=== PATIENT | female | born 1955 | race Caucasian/White ===

== ENCOUNTER 2016-06-19 06:36 | Outpatient (CLI) | payer BC ==
[~2016-06-19] VITALS: Ht 167.6 cm; Wt 86.4 kg
--- NOTE | ~2016-06-19 | HEMODYNAMI ---
PATIENT:BAO COBB MEDICAL RECORD: [id number] : 55 LOCATION:[facility] ADMISSION DATE: 06/19/16 Generatedon:06/19/20169:06 Patient name: BAO COBB Patient #: [id number] SSN: : 1955 Date of study: 06/19/2016 Page: Of Hemodynamic Procedure Report Patient Data Patient Demographics Procedure consent was obtained First Name: BAO Gender: Female Last Name: REZA : 1955 Patient #: [id number] Age: 61 year(s) Race: Unknown Additional ID: [id number] Contact details Address: [address] [place] [address] State: [place] City: [place] Zip code: [address] Past Medical History Performed procedures and imaging results Date Procedure Procedure Results Comments 06/05/2016 Stress testing Positive->Intermediate anterior with SPECT MPI risk Allergies: No known allergies Admission Admission Data Admission Date: 06/19/2016 Admission Time: 6:36 Admit Source: Other Insurance Payor: Private health insurance Height (in.): 66 BSA: 1.96 (m2) Height (cm.): 167.64 BMI: 30.73 (kg/m2) Weight (lbs.): 190.39 Weight (kg.): 86.36 Lab Results Lab Result Date: 06/19/2016 Lab Result Time: 7:15 Biochemistry Name Units Result Min Max Creatinine mg/dl 0.8 --(-*--)-- 0.6 1.3 CBC Name Units Result Min Max Hematocrit % 38.9 *-(----)-- 42 54 Hemoglobin g/dl 12.7 -*(----)-- 13.5 17.5 Procedure Procedure Types Cath Procedure Diagnostic Procedure LHC LHC w/Coronaries Miscellaneous Procedures Moderate Sedation up to 30 minutes Procedure Description Procedure Date Procedure Date: 06/19/2016 Procedure Start Time: 8:40 Procedure End Time: 9:02 Procedure Staff Name Function Roel Cordon MD Performing Physician Asim Stapleton RT Scrub Kaur Caban RN Nurse Jv Kwok RT Monitor Procedure Data Cath Procedure Fluoroscopy Diagnostic fluoroscopy Total fluoroscopy Time: 2 time: 2 min min Diagnostic fluoroscopy Total fluoroscopy dose: 463 dose: 463 mGy mGy Contrast Material Contrast Material Type Amount (ml) Isovue 300 82 Entry Location Entry Primary Successful Side Size Upsize Upsize Entry Closure Succes sful Closure Location (Fr) 1 (Fr) 2 (Fr) Remarks Device Remarks Femoral Right 5 Fr Exoseal artery Estimated blood loss: 5 ml Diagnostic catheters Device Type Used For End Catheter Placement Cordis 5Fr JL 4.0 Procedure Catheter (MP) Cordis 5Fr 3DRC Catheter Procedure (MP) Cordis 5Fr Pigtail Procedure Catheter (MP) Procedure Complications No complications Procedure Medications Medication Administration Route Dosage Oxygen NC 2 l/min Lidocaine 2% added to field 20 0.9% NaCl I.V. 100 ml/hr Benadryl I.V. 50 mg Versed I.V. 1 mg Fentanyl I.V. 50 mcg Versed I.V. 1 mg Fentanyl I.V. 50 mcg Versed I.V. 1 mg Fentanyl I.V. 50 mcg Radial Cocktail I.A. 1 syringe (Verapomil 2mg/Nitro 400mcg/Heparin 1500units) Hemodynamics Rest BSA: 1.96 (m2) HGB: 12.7 (g/dl) O2 Consumption: Estimated: 188.71 (ml/min) O2 Co nsumption indexed: Estimated:96.28 (ml/min/m) Heart Rate: 75 (bpm) Pressure Samples Time Site Value (mmHg) Purpose Heart Use Rate(bpm) 8:58 LV 101/-5,13 Snapshot 78 8:58 LV 94/3,9 Snapshot 104 8:58 AO 98/52(73) Pullback 90 8:58 LV 93/2,13 Pullback 90 Gradients Valve Time Site 1 Site 2 Mean SEP/DFP Peak To Heart Use (mmHg) (sec/min) Peak Rate (mmHg) (bpm) Aortic 8:58 LV AO 0 7 0 90 93/2,13 98/52(73) Calculations Valve P-P Mean Valve Index Valve Source Name Gradient Area Flow (cm2) Aortic 0 0 0 0 Snapshots Pre Cath Intra NCS Post Cath Vital Signs Time Heart Resp SPO2 etCO2 [id number] NIBP (mmHg) Rhythm Pain Sedation Rate (ipm) (%) (mmHg) (mmHg) Status Level (bpm) 8:35:35 75 18 100 0 0 138/82(111) NSR 0 (11) 10(A) , No pain 8:39:53 74 20 96 0 0 125/65(88) NSR 0 (11) 10(A) , No pain 8:44:07 75 19 98 0 0 118/73(95) NSR 0 (11) 9(A) , No pain 8:48:23 76 26 98 0 0 121/68(89) NSR 0 (11) 9(A) , No pain 8:52:35 81 16 94 0 0 111/70(98) NSR 0 (11) 9(A) , No pain 8:56:47 82 17 99 0 0 109/63(83) NSR 0 (11) 9(A) , No pain 9:00:59 87 18 100 0 0 112/66(84) NSR 0 (11) 10(A) , No pain Medications Time Medication Route Dose Verified Delivered Reason Notes E ffectiveness by by 8:18:46 Oxygen NC 2 l/min Roel Buffie used for Bravo Caban RN procedure 8:19:47 Lidocaine 2% added 20ml Roel Roel for local to vial Bravo Cordon MD anesthetic field 8:20:16 Radial I.A. 1 Roel Roel for not Cocktail syringe Bravo Cordon MD vasodilation used, (Verapomil femoral 2mg/Nitro access 400mcg/Heparin obtained 1500units) 8:20:33 0.9% NaCl I.V. 100 Roel Buffie Per ml/hr Bravo Caban RN physician 8:33:38 Benadryl I.V. 50 mg Roel Buffie used for Bravo Caban RN procedure 8:38:15 Versed I.V. 1 mg Roel Buffie for sedation Bravo Caban RN 8:38:23 Fentanyl I.V. 50 mcg Roel Buffie for sedation Bravo Caban RN 8:42:21 Versed I.V. 1 mg Roel Buffie for sedation Bravo Caban RN 8:42:24 Fentanyl I.V. 50 mcg Roel Buffie for sedation Bravo Caban RN 8:46:51 Versed I.V. 1 mg Roel Dietrich for sedation Bravo Caban RN 8:46:54 Fentanyl I.V. 50 mcg Roel Dietrich for sedation Bravo Caban RN Procedure Log Time Note 8:00:52 Asim Stapleton RT(R) sent for patient. Start room use. 8:09:23 Informed consent obtained and on chart 8:09:26 Admit Source: Other 8:09:47 Diagnostic Cath status Elective 8:10:21 Time tracking: Regular hours 8:10:25 Plan of Care:Hemodynamics will remain stable., Cardiac rhythm will remain stable., Comfort level will be maintained., Respiratory function will remain adequate., Patient/ family verbilizes understanding of procedure., Procedure tolerated without complication., Recovers from procedure without complications.. 8:14:45 Patient Weight : 190.39 lbs 8:14:50 Patient Height : 66 inches 8:15:00 Insurance Payor : Private health insurance 8:18:35 Patient allergic to No known allergies 8:18:46 Oxygen 2 l/min NC was given by Kaur Caban RN; used for procedure; 8:19:25 Lab Result : Creatinine 0.8 mg/dl 8:19:25 Lab Result : Hematocrit 38.9 % 8:19:25 Lab Result : Hemoglobin 12.7 g/dl 8:19:47 Lidocaine 2% 20ml vial added to field was given by Roel Cordon MD; for local anesthetic; 8:19:49 H&P Date Dictated: 05/26/2016 Within 30 days and on chart., H&P Addendum completed by physician on day of procedure. (MUST COMPLETE FOR ALL OUTPATIENTS). 8:19:50 Pre-procedure instructions explained to patient. 8:20:16 Radial Cocktail (Verapomil 2mg/Nitro 400mcg/Heparin 1500units) 1 syringe I.A. was given by Roel Cordon MD; for vasodilation; not used, femoral access obtained 8:20:33 0.9% NaCl 100 ml/hr I.V. was given by Kaur Caban RN; Per physician; 8:21:03 Patient received from Outpatients to [facility] 2 Alert and oriented. Tansferred to table in Supine position. 8:21:05 Warm blankets applied, and sara hugger turned on for patient comfort. 8:21:05 Correct patient and procedure confirmed by team. 8:21:06 ECG and BP/O2 sat monitors applied to patient. 8:33:38 Benadryl 50 mg I.V. was given by Kaur Caban RN; used for procedure; 8:34:28 Vital chart was started 8:34:30 Baseline sample Acquired. 8:34:33 Rhythm: sinus rhythm 8:34:36 Pre-op teaching completed and patient verbalized understanding. 8:34:37 Family in waiting room. 8:34:38 Patient NPO since Midnight. 8:34:40 Is the patient allergic to Iodine/contrast media? No. 8:34:41 Is patient on blood thinner?No 8:34:43 Patient diabetic? No. 8:34:45 Previous problem with sedation/anesthesia? No ? 8:34:46 Snore? Yes 8:34:47 Sleep apnea? Yes 8:34:48 Deviated septum? No 8:34:49 Opens mouth fully? Yes 8:34:50 Sticks out tongue? No 8:34:53 Airway obstruction? No ? 8:34:55 Dentures? No ? 8:34:57 Modified Ted's test Ulnar < 7 seconds 8:34:59 Patient pain scale 0/10 ?. 8:35:03 IV patent on arrival in left forearm with 0.9% NaCl at [facility]. 8:35:08 Lab results completed and on chart. 8:35:10 Right Radial & Right Groin area was prepped with chlora-prep and draped in sterile fashion 8:35:11 Alarms reviewed by R. N. 8:35:12 Sharps counted by scrub and verified by R.N. 8:35:13 Physician arrived 8:35:13 --------ALL STOP TIME OUT------ 8:35:14 Final Timeout: patient, procedure, and site verified with staff and physician. All members of the team are in agreement. 8:35:15 Right Radial & Right Groin site verified by team. 8:35:18 Physical assessment completed. ASA score P 2 - A patient with mild systemic disease as per Roel Cordon MD. 8:35:23 Sedation plan: IV Moderate Sedation Versed, Fentanyl 8:35:28 Use device set Radial Dx 8:35:29 Tegaderm 4 x 4 opened to sterile field. 8:35:30 Acist Manifold opened to sterile field. 8:35:30 Acist Hand Control opened to sterile field. 8:35:31 Acist Syringe opened to sterile field. 8:35:32 Cardinal Cath Pack opened to sterile field. 8:35:32 Bag Decanter opened to sterile field. 8:35:32 Terumo 6Fr Slender Glidesheath opened to sterile field. 8:35:33 St Andrea 260cm J .035 wire opened to sterile field. 8:35:44 Cook 21G 4cm Radial Needle opened to sterile field. 8:38:15 Versed 1 mg I.V. was given by Kaur Caban RN; for sedation; 8:38:23 Fentanyl 50 mcg I.V. was given by Kaur Caban RN; for sedation; 8:38:57 Zero performed for pressure channel P1 8:40:26 Procedure started. 8:40:26 Full Disclosure recording started 8:40:30 Local anesthetic to left radial artery with Lidocaine 2% by Roel Cordon MD.INITIAL ACCESS ONLY 8:42:21 Versed 1 mg I.V. was given by Kaur Caban RN; for sedation; 8:42:24 Fentanyl 50 mcg I.V. was given by Kaur Caban RN; for sedation; 8:45:06 unable to cannulate radial artery, moving to femoral approach 8:45:17 Local anesthetic to right femoral artery with Lidocaine 2% by Roel Cordon MD.ADDITIONAL ACCESS 8:45:51 Terumo 5Fr Timpson Sheath opened to sterile field. 8:45:56 Use device set Femoral Dx 8:46:02 Cordis Infinity 5Fr Multipack catheter opened to sterile field. 8:46:24 A 5 Fr sheath was inserted into the Right Femoral artery 8:46:51 Versed 1 mg I.V. was given by Kaur Caban RN; for sedation; 8:46:54 Fentanyl 50 mcg I.V. was given by Kaur Caban RN; for sedation; 8:48:50 A Cordis 5Fr JL 4.0 Catheter (MP) was advanced over the wire and used for Procedure. 8:50:12 LCA angiography performed. 8:55:18 Catheter exchanged over wire. 8:55:27 A Cordis 5Fr 3DRC Catheter (MP) was advanced over the wire and used for Procedure. 8:56:51 RCA angiography performed. 8:56:53 Catheter exchanged over wire. 8:57:08 A Cordis 5Fr Pigtail Catheter (MP) was advanced over the wire and used for Procedure. 8:57:32 Cordis 5Fr Exoseal opened to sterile field. 8:58:20 LV gram done using ALCANTARA 8:58:21 LV hemodynamics recorded. 8:58:24 Injector settings: Ml/sec: 10, Volume: 20, 8:58:34 EF : 60 % 8:59:23 Catheter removed. 8:59:30 Sheath removed intact; hemostasis achieved with Exoseal to the Right Femoral artery. 8:59:32 Procedure ended.(Physican Out) 8:59:45 Insertion/operative site no bleeding no hematoma. 8:59:48 Post-op/insertion site Right Femoral artery dressed using a 4 x 4 and Tegaderm. 8:59:53 Post right femoral artery:stable, soft, clean and dry 8:59:54 Post Procedure Pulses reassessed and unchanged 8:59:57 Post-procedure physical assessment completed. ASA score P 2 - A patient with mild systemic disease as per Roel Cordon MD. 9:00:00 Post procedure rhythm: unchanged. 9:00:02 Estimated blood loss: 5 ml 9:00:04 Post procedure instruction explained to patient.Patient verbalizes understanding. 9:00:04 Patient needs reinforcement of post procedure teaching. 9:01:13 Procedure type changed to Cath procedure, Diagnostic procedure, LHC, LHC w/Coronaries, Miscellaneous Procedures, Moderate Sedation up to 30 minutes 9:01:32 Fluoroscopy time 02.00 minutes. 9:01:37 Fluoroscopy dose: 463 mGy 9:01:37 Flurop Dose total: 463 9:01:41 Contrast amount:Isovue 300 82ml. 9:01:42 Sharps counted by scrub and verified by R.N. 9:02:18 Procedure and supply charges have been captured, reviewed, submitted and are correct. 9:02:20 Procedure Complication : No complications 9:02:22 Vital chart was stopped 9:02:24 Report given to Post Procedure Room. 9:02:27 Patient transfered to Post Procedure Room with Stretcher. 9:02:29 Procedure ended. 9:02:29 Full Disclosure recording stopped 9:02:36 End room use (Document Last) 9:04:42 ACC Patient presents with Stable Angina CCS Anginal Class 2--Slight limitation of ordinary activity. Device Usage Item Name Manufacture Quantity Catalog Hospital Part Current Minimal Lot# / Number Charge Number Stock Stock Serial# Code Latoyaaderm 4 3M 1 [id number] 709750 [id number] 5 x 4 Acist Acist 1 67776 201649 352376 465333 5 Manifold [employer] Inc Acist Hand Acist 1 45368 522089 055590 376901 5 Control Medical Systems Inc Acist Acist 1 40497 613094 502209 768708 20 Syringe Medical Systems Inc Cardinal Cardinal 1 [id number] 863635 36071 139493 5 Cath Pack Health Bag Microtek 1 2002S 742225 62013 218740 5 Decanter Medical Inc. Terumo 6Fr Terumo 1 [id number] 991496 345448 570893 [address] St Andrea 1 964305 424908 107881 164960 30 260cm J .035 wire Cook 21G Cook Medical 1 [id number] 860435 152518 5 4cm Radial Needle Terumo 5Fr Terumo 1 SNM198 700662 607573 517963 40 Timpson Sheath Cordis Cardinal 1 [id number] 009439 93239 575761 30 Infinity Health 5Fr Multipack catheter Cordis 5Fr Cardinal 1 043631 5 JL 4.0 Health Catheter (MP) Cordis 5Fr Cardinal 1 574993 5 3DRC Health Catheter (MP) Cordis 5Fr Cardinal 1 714115 5 Pigtail Health Catheter (MP) Cordis 5Fr Cardinal 1 EX500 840745 668562 691932 10 [employer] Signature Audit [place] Stage Time Signature Unsigned Intra-Procedure 06/19/2016 Jv Kwok 9:06:55 AM RT(R) Signatures Monitor : Jv Kwok RT Signature : Date : Time : [facility] [address], [place] [address]
[2016-06-19] MEDS ORDERED: CYMBALTA60 MG PO (06:54)
[2016-06-19] MEDS ORDERED: PRINIVIL20 MG PO (06:54)
[2016-06-19] MEDS ORDERED: BUPROPION XL150 MG PO (06:54)
[2016-06-19] MEDS ORDERED: HYDROCHLOROTH12.5 M1 PO (06:55)
[2016-06-19 07:03] VITALS: BP 110/76; Ht 167.6 cm; Wt 86.4 kg
[2016-06-19 07:36] LABS: BASOPHILS 0.2 % (0.0-2.0); EOSINOPHILS 0.8 % (0-7); HEMATOCRIT 38.9 % (36.0-48.0); HEMOGLOBIN 12.7 g/dL (12-16); IMMATURE GRANULOCYTES 0.2 % (0-5); LYMPHOCYTES 31.3 % (15-50); MCH 28.7 pg (26.0-34.0); MCHC 32.6 g/dL (31.0-37.0); MCV 87.8 fL (80.0-100.0); MEAN PLATELET VOLUME 10.2 fL (7.4-10.4); MONOCYTES 7.6 % (2-11); NEUTROPHILS 59.9 % (40-80); PLATELET COUNT 266 10x3/uL (130-400); RBC 4.43 10x6/uL (4.00-5.40); RDW 13.6 % (11.5-14.5); WBC 5.1 10x3/uL (4.8-10.8)
[2016-06-19 07:53] LABS: CALC OSMOLALITY 279 mosm/kg (275-300); CALCIUM 9.1 mg/dL (8.5-10.1); CARBON DIOXIDE 28.5 mmol/L (21.0-32.0); CHLORIDE - SERUM 102 mmol/L (98-107); CREATININE - SERUM 0.8 mg/dL (0.6-1.3); GLUCOSE 94 mg/dL (74-106); POTASSIUM - SERUM 4.7 mmol/L (3.5-5.1); SODIUM 139 mmol/L (136-145); UREA NITROGEN 17 mg/dL (7-18); eGFR NON AFRICAN AMERICAN 77 mL/min (90-120)
--- NOTE | 2016-06-19 09:31 | NUR ---
HR 76 CHEST PAIN DENIED BP 135/72. NAUSEA DENIED 5 FR EXOSEAL R/GROIN CDI NO BLEEDING NO HEMATOMA NOTED. INSTRUCTED PATIENT TO KEEP HEAD FLAT ON PILLOW WITH RLE STRAIGHT
--- NOTE | 2016-06-19 10:07 | NUR ---
CHEST PAIN DENIED WITH HR 72 NAUSEA IS DENIED. 5 FR EXOSEAL R/GROIN CDI NO BLEEDING NO HEMATOMA NOTED. TOLERATING ORAL FLUIDS WITH NAUSEA DENIED FAMILY AT SIDE INSTRUCTED PATIENT TO KEEP HEAD FLAT ON PILLOW WITH RLE STRAIGHT
--- NOTE | 2016-06-19 10:30 | NUR ---
1030 CHEST PAIN DENIED WITH VSS 5 FR EXOSEAL R/GROIN CDI NO BLEEDING NO HEMATOMA NOTED. FAMILY AT SIDE
--- NOTE | 2016-06-19 11:01 | NUR ---
VSS WITH PATIENT RESTING QUIETLY NO DISTRESS NOTED. FAMILY AT BEDSIDE 5 FR EXOSEAL R/GROIN CDI NO BLEEDING NO HEMATOMA NOTED WILL MONITOR
--- NOTE | 2016-06-19 11:25 | NUR ---
ASSIST UP TO BATHROOM WITH VSS 5 FR EXOSEAL R/GROIN CDI NO BLEEDING NO HEMATOMA NOTED.
--- NOTE | 2016-06-19 11:27 | NUR ---
PIV REMOVED FROM LEFT ARM WITH DRESSING APPLIED 5 FR EXOSEAL R/GROIN CDI NO BLEEDING NO HEMATOMA NOTED. CHEST PAIN IS DENIED. VERBAL AND WRITTEN DISCHARGE GONE OVER WITH PATIENT AND FAMILY LEFT VIA WC TO [facility] FOR FAMILY TO DRIVE HOME
--- NOTE | 2016-06-25 13:16 | OP ---
PATIENT NAME: BAO COBB MEDICAL RECORD: [id number] :55 LOCATION:D.CAT ADMISSION DATE: SURGEON: AQUILES OCHOA M.D. DATE OF OPERATION: 06/19/2016 REFERRING PHYSICIAN: Montserrat Guadarrama MD PROCEDURES PERFORMED: 1. Selective coronary angiography. 2. Left heart catheterization with ventriculogram. INDICATION: A 61-year-old woman presents with symptoms of chest pain and abnormal Cardiolite stress test revealing anterior wall ischemia. EQUIPMENT USED: A 5-Greek JL4, J Carlos right, and pigtail catheter. TECHNIQUE: A 5-Greek sheath was inserted in retrograde fashion in the right common femoral artery. Next, selective coronary angiography was performed using a standard 5-Greek JL4 and J Carlos right. Left heart catheterization was performed using pigtail catheter as well. CORONARY ANATOMY: 1. Left main: Left main trunk is large in caliber. It gives rise to the LAD and circumflex. It is widely patent. 2. LAD: This is a large caliber vessel extending to the apex. The proximal vessel has some mild irregularities, but nothing worse than 20% to 30%. 3. Circumflex: This vessel is large in caliber and dominant. It provides a large lateral branch and posterolateral branch distal segment. This vessel is smooth-walled and angiographically normal. 4. Right coronary: This vessel is small in caliber and nondominant. It is widely patent and angiographically normal. 5. Left ventricle: Left ventricle is normal in size and function. No wall motion abnormalities are seen. Its ejection fraction is 60%. IMPRESSION: 1. Mild coronary artery disease. 2. Normal left ventricular function. RECOMMENDATIONS: At this point, we will continue with medical management. TRANSINT:[id number] Voice Confirmation ID: [id number] DOCUMENT ID: [id number] AQUILES OCHOA M.D. at 1316 CC: [id number] DICTATION DATE: 06/19/16907 COOK SPECIALTY: 06/19/1619 DEP CLI 06/19/16 [place] [address]
== END 2016-06-19 11:33 | disposition home or self-care (01) ==
LOC: D.CATH 06:36
PROVIDERS: Internal Medicine Cardiovascular Disease
DX: I25.10 Atherosclerotic heart disease of native coronary artery without angina pectoris (principal)

== ENCOUNTER 2016-08-20 11:27 | Day surgery (SDC) | payer BC ==
[~2016-08-20] VITALS: Ht 167.6 cm; Wt 85.0 kg
[~2016-08-20 11:27] MED LIST: BUPROPION XL150 MG PO; CYMBALTA60 MG PO; HYDROCHLOROTH12.5 M1 PO; PRINIVIL20 MG PO
[2016-08-20 12:22] VITALS: BP 118/78; Ht 167.6 cm; Wt 85.0 kg
[2016-08-20 12:22] LABS: BASOPHILS 0.2 % (0.0-2.0); EOSINOPHILS 0.3 % (0-7); HEMATOCRIT 43.1 % (36.0-48.0); HEMOGLOBIN 14.2 g/dL (12-16); IMMATURE GRANULOCYTES 0.2 % (0-5); LYMPHOCYTES 28.9 % (15-50); MCH 29.1 pg (26.0-34.0); MCHC 32.9 g/dL (31.0-37.0); MCV 88.3 fL (80.0-100.0); MEAN PLATELET VOLUME 9.9 fL (7.4-10.4); MONOCYTES 7.1 % (2-11); NEUTROPHILS 63.3 % (40-80); PLATELET COUNT 274 10x3/uL (130-400); RBC 4.88 10x6/uL (4.00-5.40); RDW 13.8 % (11.5-14.5); WBC 5.8 10x3/uL (4.8-10.8)
[2016-08-20 12:39] LABS: ANION GAP 11.4 mmol/L (8-16); CALCIUM 9.6 mg/dL (8.5-10.1); CARBON DIOXIDE 28.8 mmol/L (21.0-32.0); CREATININE - SERUM 0.9 mg/dL (0.6-1.3); POTASSIUM - SERUM 4.2 mmol/L (3.5-5.1)
--- NOTE | 2016-08-21 11:10 | OP ---
PATIENT NAME: BAO COBB MEDICAL RECORD: [id number] :55 LOCATION:D.OPS ADMISSION DATE: SURGEON: SHARITA JURADO DO DATE OF OPERATION: 08/20/2016 PROCEDURES: Colonoscopy with cold forceps biopsy polypectomy. SCOPE: Fiz video pediatric colonoscope. MEDICATIONS: Propofol 320 mg IV per anesthesia. WITHDRAWAL TIME: 10 minutes. INDICATIONS: Screening colonoscopy and a personal history of colon polyps. FINDINGS: Informed consent was given. The patient was made comfortable with the above medication. After reaching an adequate level of sedation by slow IV push, the patient was placed on her left side. A digital rectal examination was performed, which was normal. The endoscope was then advanced under direct visualization through the rectum to the terminal ileum. The scope was withdrawn and the mucosa was carefully examined. There was a single, flat, sessile, benign-appearing polyp in the descending colon, which measured approximately 7 mm in size. It was removed with cold forceps completely. There was mild, small-mouth diverticula present within the descending and sigmoid colon. The remainder of the examination was normal. The scope was withdrawn from the patient. The patient tolerated the procedure well and there were no complications. ESTIMATED BLOOD LOSS: Less than 3 cc. IMPRESSION: 1. Single polyp as described above, removed with cold forceps. 2. Mild diverticulosis of the descending and sigmoid colon. PLAN AND RECOMMENDATIONS: 1. Discharge home when recovery parameters are met. 2. High-fiber diet. 3. Continue current medications. 4. Follow up on the biopsy specimen results. 5. Recall colonoscopy in 5 years. TRANSINT:[id number] Voice Confirmation ID: [id number] DOCUMENT ID: [id number] SHARITA JURADO DO at 1110 CC: [id number] DICTATION DATE: 08/20/16 1341 REAGENT TENDER HELPER: 08/20/16 1509 [facility] 08/20/16 [place] [id number] [place] [address]
== END 2016-08-20 14:35 | disposition home or self-care (01) ==
LOC: D.OPS 11:27
PROVIDERS: Anesthesiology
DX: Z12.11 Encounter for screening for malignant neoplasm of colon (principal); K63.5 Polyp of colon; K57.30 Diverticulosis of large intestine without perforation or abscess without bleeding; Z86.010 Personal history of colon polyps

== ENCOUNTER → 2016-09-10 12:52 | Outpatient (CLI) | payer BC ==
[2016-08-20 12:22] VITALS: BMI 30.2
== END | disposition home or self-care (01) ==
LOC: D.CT 12:52 → D.MRI 13:30
DX: M54.2 Cervicalgia (principal); M54.5 Low back pain; Z12.31 Encounter for screening mammogram for malignant neoplasm of breast

== ENCOUNTER 2016-10-15 11:17 | Day surgery (SDC) | payer BC ==
[~2016-10-15] VITALS: Ht 167.6 cm; Wt 86.4 kg
--- NOTE | ~2016-10-15 | OP ---
PATIENT NAME: BAO COBB MEDICAL RECORD: [id number] :55 LOCATION:[facility] ADMISSION DATE: SURGEON: SHARITA JURADO DO DATE OF OPERATION: 10/15/2016 PROCEDURE: EGD with balloon dilation and biopsies. INDICATIONS FOR PROCEDURE: Epigastric abdominal pain and GERD. SCOPE: Rewarder video gastroscope. MEDICATIONS: Propofol 400 mg IV per anesthesia. ESTIMATED BLOOD LOSS: Less than 2 mL. COMPLICATIONS: None. FINDINGS: Informed consent was given. The patient was made comfortable with the above medication. After reaching an adequate level of sedation by slow IV push, the patient was placed on her left side. The endoscope was then advanced under direct visualization through the mouth to the second portion of the duodenum. The upper, middle, and distal of the esophagus appeared normal. At the GE junction, there appeared to a little stenosis. At the end of the procedure, a balloon dilation was used through the scope and dilated up to 18 mm at this site. The endoscope was advanced through the GE junction into the stomach and retroflexed to view the cardia, where a small sliding hiatal hernia was present. There was also a small polypoid area on the cardia side of the GE junction. Three biopsies were taken of this site. These were taken to send for histology. In the fundus and proximal body, there were multiple plaque-like polyps. Biopsies were taken of one of these sites to submit for histology. The endoscope was advanced down to the antrum and prepyloric region which appeared normal. Random biopsies were taken to rule out H. pylori and to submit for histology. The endoscope was advanced beyond the pylorus into the duodenum where the bulb and second portion of the duodenum appeared normal. The scope was then withdrawn from the patient. The patient tolerated the procedure well and there were no complications. IMPRESSION: 1. Esophageal stenosis at the gastroesophageal junction, dilated to 18 mm without difficulty. 2. Small sliding hiatal hernia. 3. Gastric polyps located in both at the gastroesophageal junction on the cardia side and in the fundus and proximal body, biopsies taken of both sites. 4. 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 PLAN AND RECOMMENDATIONS: 1. Discharge home when recovery parameters are met. 2. Continue current diet. 3. Continue current medications. 4. Add Protonix 40 mg daily in the a.m. times 30 days. 5. Await results of balloon dilation. 6. If there is continued dysphagia or no improvement with the dilation that was just performed, consider a barium esophagram versus a modified barium swallow regarding the dysphagia, which sounds more oropharyngeal. OPERATIVE REPORT [id number] BAO COBB 7. Follow up in clinic as needed. TRANSINT:[id number] Voice Confirmation ID: [id number] DOCUMENT ID: [id number] SHARITA JURADO DO CC: [id number] DICTATION DATE: 10/15/16 1632 CIS COORDINATOR: 10/16/16 0038 [facility] 10/15/16 [place] [id number] [place] [address]
[2016-10-15 12:02] VITALS: BP 139/77; Ht 167.6 cm; Wt 86.4 kg
[2016-10-15 12:32] LABS: BASOPHILS 0.3 % (0-2); EOSINOPHILS 0.8 % (0-7); HEMATOCRIT 39.2 % (36.0-48.0); HEMOGLOBIN 12.8 g/dL (12-16); IMMATURE GRANULOCYTES 0.3 % (0-5); LYMPHOCYTES 29.7 % (15-50); MCH 28.7 pg (26.0-34.0); MCHC 32.7 g/dL (31.0-37.0); MCV 87.9 fL (80.0-100.0); MEAN PLATELET VOLUME 9.2 fL (7.4-10.4); MONOCYTES 5.6 % (2-11); NEUTROPHILS 63.3 % (40-80); PLATELET COUNT 283 10x3/uL (130-400); RBC 4.46 10x6/uL (4.00-5.40); RDW 13.6 % (11.5-14.5); WBC 7.7 10x3/uL (4.8-10.8)
[2016-10-15 12:40] LABS: ANION GAP 7.3 mmol/L (8-16); CARBON DIOXIDE 30.6 mmol/L (21.0-32.0); POTASSIUM - SERUM 3.9 mmol/L (3.5-5.1)
--- NOTE | 2016-10-15 16:20 | NUR ---
1620 18-20 CRE BALLOON INFLATED TO 18 PALESTINIAN
--- NOTE | 2016-10-15 17:52 | NUR ---
1730--IV DC'D, PT UP TO DRESS. DERIK MANUEL [id number]--DISCHARGE INSTRUCTIONS GIVEN, PT VERBALIZES UNDERSTANDING. PT OFF UNIT VIA WC. DERIK MANUEL
== END 2016-10-15 17:40 | disposition home or self-care (01) ==
LOC: D.OPS 11:17
PROVIDERS: Internal Medicine Gastroenterology
DX: K22.2 Esophageal obstruction (principal); K44.9 Diaphragmatic hernia without obstruction or gangrene; K31.7 Polyp of stomach and duodenum; K29.80 Duodenitis without bleeding; K21.9 Gastro-esophageal reflux disease without esophagitis

== ENCOUNTER 2016-11-07 09:00 | Day surgery (SDC) | payer BC ==
[2016-11-06 15:21] LABS: BASOPHILS 0.5 % (0-2); EOSINOPHILS 3.3 % (0-7); HEMATOCRIT 37.7 % (36.0-48.0); HEMOGLOBIN 12.4 g/dL (12-16); IMMATURE GRANULOCYTES 0.3 % (0-5); MCH 28.8 pg (26.0-34.0); MCHC 32.9 g/dL (31.0-37.0); MCV 87.5 fL (80.0-100.0); MEAN PLATELET VOLUME 9.2 fL (7.4-10.4); NEUTROPHILS 47.9 % (40-80); PLATELET COUNT 274 10x3/uL (130-400); RBC 4.31 10x6/uL (4.00-5.40)
[2016-11-06 15:31] LABS: APPEARANCE HAZY (CLEAR); BILIRUBIN NEGATIVE (NEGATIVE); COLOR YELLOW (YELLOW); GLUCOSE NEGATIVE (NEGATIVE); KETONE NEGATIVE (NEGATIVE); LEUKOCYTE ESTERASE TRACE (NEGATIVE); NITRITE NEGATIVE (NEGATIVE); PROTEIN NEGATIVE (NEGATIVE); SPECIFIC GRAVITY 1.015 (1.005-1.020); UROBILINOGEN NORMAL (NORMAL)
[2016-11-06 15:32] LABS: BACTERIA MODERATE /hpf (NONE SEEN); EPITHELIAL CELLS 0-5 /hpf (0-5); MUCUS <1+ /lpf (NONE SEEN); RED CELLS - URINE OCC /hpf (0-5); WHITE CELLS - URINE OCC /hpf (0-5)
[2016-11-06 15:39] LABS: CALC OSMOLALITY 281 mosm/kg (275-300); CARBON DIOXIDE 31.2 mmol/L (21.0-32.0); CHLORIDE - SERUM 104 mmol/L (98-107); CREATININE - SERUM 0.8 mg/dL (0.6-1.3); GLUCOSE 90 mg/dL (74-106); POTASSIUM - SERUM 3.4 mmol/L (3.5-5.1); SODIUM 141 mmol/L (136-145); UREA NITROGEN 16 mg/dL (7-18); eGFR NON AFRICAN AMERICAN 77 mL/min (90-120)
[~2016-11-07] VITALS: Ht 167.6 cm; Wt 88.6 kg
--- NOTE | ~2016-11-07 | OP ---
PATIENT NAME: BAO COBB MEDICAL RECORD: [id number] :55 LOCATION:[id number] ADMISSION DATE: SURGEON: KEVEN MURRAY MD DATE OF OPERATION: 11/07/2016 DIAGNOSIS: Synovial cyst with nerve root compression, L4-L5 on the left. SURGEON: Keven Murray MD. ESTIMATED BLOOD LOSS: 50 cc. SUMMARY: The patient was taken to the operating room and after an adequate level of general anesthetic, was prepped and draped in the usual aseptic manner. An incision was then made to the left of the spinous processes using a C-arm fluoroscope as a guide to this placement. Dissection was carried out down to the interlaminar space with Metzenbaum scissors and then a METRx operating channel 1.5 cm in diameter was introduced over a system of dilators using a 7 cm length barrel. Following this, the METRx retractor barrel was attached to the operating table by way of flexible loera. Following this, the soft tissue was removed from the interlaminar space and then the lamina was thinned with the Midas Philippe drill, as well as the facet joint on the left. Following this, the canal was entered and the cyst was immediately identified and removed piecemeal and sent to pathology. A thorough decompression on the canal was carried out in this manner and when this was completed, the wound was irrigated with an antibiotic solution and hemostasis was achieved with a mallous cautery in the epidural space and a closure was then carried out with 2-0 Dexon on the fascia, 3-0 Dexon on the subcutaneous tissue and a subcuticular stitch with 4-0 Dexon was used on the skin followed by skin glue. The patient tolerated the procedure well and was taken to recovery in stable condition. TRANSINT:[id number] Voice Confirmation ID: [id number] DOCUMENT ID: [id number] KEVEN MURRAY MD CC: [id number] DICTATION DATE: 11/07/161210 EPIDEMIOLOGIST: 11/07/162013 [place] [id number]
[~2016-11-07 09:00] MED LIST changes: +PROTONIX40 MG PO
[2016-11-07 09:25] VITALS: BP 160/85; BMI 30.6
--- NOTE | 2016-11-07 12:26 | NUR ---
SCOPE PATCH BEHIND LEFT EAR ON ADMIT
--- NOTE | 2016-11-07 12:56 | NUR ---
NO NUMBNESS OR TINGLING TO LOWER EXTREMETIES EQUAL STRENGHTS BILATERALLY
[2016-11-07 13:24] VITALS: BP 143/79
--- NOTE | 2016-11-07 13:30 | NUR ---
RECEIVED TO ROOM 2211 FROM RECOVERY ROOM. VSS. ORIENTED TO ROOM AND CALL LIGHT SYSTEM. FAMILY IN ROOM. CALL LIGHT IN REACH.
[2016-11-07 15:38] VITALS: BP 134/65; Ht 167.6 cm; Wt 88.6 kg
--- NOTE | 2016-11-07 19:00 | NUR ---
ASSISTED PATIENT TO BATHROOM AND BACK TO BED. AAOX4. RR EVEN AND UNLABORED. 0 S/S OF DISTRESS. DENIES PAIN AT THIS TIME. IV TO RIGHT HAND PATENT WITH NO REDNESS OR SWELLING. INCISION TO LOWER BACK WELL APPROXIMATED WITH STERISTRIPS. SRX2. BED LOW. CALL LIGHT WITHIN REACH.
[2016-11-07 20:00] VITALS: BP 131/63
[2016-11-08] VITALS: BP 124/73
[2016-11-08 04:00] VITALS: BP 126/78
--- NOTE | 2016-11-08 05:06 | NUR ---
MORPHINE GIVEN FOR PAIN. WILL REASSESS.
--- NOTE | 2016-11-08 07:20 | NUR ---
PATIENT RECEIVED IN [place] POSITION ALERT AND RESTING QUIETLY. NO SIGNS OF DISTRESS NOTED. RATES PAIN 2/10. DENIES NEEDS. FAMILY PRESENT. SIDE RAILS UP X2. BED IN LOW POSITION. CALL LIGHT IN REACH.
[2016-11-08] MEDS ORDERED: HYDROCODON-ACE1 EAC7 PO (07:53)
--- NOTE | 2016-11-08 08:55 | NUR ---
ALERT IN BED. NO SIGNS OF DISTRESS NOTED. ANTICIPATING D/C HOME. IV D/C WITH CATH TIP INTACT. SITE COVERED WITH GAUZE AND BANDAID.
--- NOTE | 2016-11-08 09:05 | NUR ---
D/C TEACHING AND PRESCRIPTION FOR [place] PROVIDED. STATES UNDERSTANDING. DENIES QUESTIONS. FAMILY PRESENT.
--- NOTE | 2016-11-08 09:20 | NUR ---
PATIENT D/C HOME WITH . TRANSFERRED DOWNSTAIRS VIA WHEELCHAIR WITH STAFF
--- NOTE | 2016-11-11 11:44 | HP ---
PATIENT: BAO COBB MEDICAL RECORD: [id number] ACCOUNT: [id number] LOCATION:[facility] : 55 ADMISSION DATE: 11/07/16 HISTORY AND PHYSICAL EXAMINATION Surgery is for 11/07/2016. CHIEF COMPLAINT: Low back pain, radicular into left hip. HISTORY OF PRESENT ILLNESS: This is a pleasant white female who presented to our office with left hip pain. It is worse with walking. It keeps her up at night at times. She was found on MRI to have a L4-L5 synovial cyst with nerve root compression. PAST MEDICAL HISTORY: High blood pressure. PAST SURGICAL HISTORY: Hysterectomy, cholecystectomy, bladder surgery, carpal tunnel, bilateral and lumpectomy of her breast times 2. FAMILY HISTORY: Father at the age of 57 with heart disease. Mother at the age of 45 with lung cancer and she has had 2 sisters with breast cancer. SOCIAL HISTORY: She is . She does not smoke or drink. FAMILY DOCTORS: Dr. Guadarrama. ALLERGIES: None. DIAGNOSTIC DATA: MRI was done at [facility]. CURRENT MEDICATIONS: Lisinopril, Cymbalta, bupropion. She has had fish oil and Mobic on hold. REVIEW OF SYSTEMS: She denies any recent chest pain, shortness of breath or weight changes. PHYSICAL EXAMINATION: HEENT: She is normocephalic. Pupils are equal, reactive to light. CHEST: Clear bilaterally to auscultation. HEART: S1 and S2. ABDOMEN: Soft, bowel sounds present. IMPRESSION: L4-L5 synovial cyst. PLAN: L4-5 laminectomy with synovial cyst resection. The risk and benefits of surgery have been explained to her in detail. Risks include bleeding, problems with anesthesia and . Time was allowed for questions, questions were answered. The patient wishes to proceed with surgery. TRANSINT:[id number] Voice Confirmation ID: [id number] DOCUMENT ID: [id number] Dictated By: MARGARETTE BRIONES I have interviewed/examined the above patient and agree with these documented findings. HISTORY AND PHYSICAL [id number] BAO COBB JAMES MD at 1144 CC: [id number] DICTATION DATE: 11/06/16 1710 QUALITY IMPROVEMENT COORDINATOR (RN): 11/06/16 2125 DEP SDC 11/08/16 [facility] [address] [facility] [place] [address]
== END 2016-11-08 09:20 | disposition home or self-care (01) ==
LOC: D.OPS 09:00 → D.MS 09:00 → D.PAN 11:00 → D.OPS 11:00 → D.MS 12:49 → D.OPS 11-08 09:20
PROVIDERS: Neurological Surgery
DX: M71.38 Other bursal cyst, other site (principal); M25.552 Pain in left hip; M79.605 Pain in left leg; I10 Essential (primary) hypertension; K21.9 Gastro-esophageal reflux disease without esophagitis; Z01.812 Encounter for preprocedural laboratory examination

== ENCOUNTER → 2017-03-18 07:38 | Outpatient (CLI) | payer BC ==
[2016-11-07 15:38] VITALS: BMI 31.5
[~2017-03-18 07:38] MED LIST changes: +HYDROCODON-ACE1 EAC7 PO
== END ==
LOC: D.MRI 07:38
DX: M79.605 Pain in left leg (principal)

== ENCOUNTER → 2017-09-22 16:40 | Outpatient (CLI) | payer OTHER ==
[2016-11-07 15:38] VITALS: BMI 31.5
== END | disposition home or self-care (01) ==
LOC: D.MAMMO 09-18 14:45
DX: Z12.31 Encounter for screening mammogram for malignant neoplasm of breast (principal)

== ENCOUNTER 2017-10-27 08:00 | Outpatient (CLI) | payer OTHER ==
[2016-11-07 15:38] VITALS: BMI 31.5
== END 2017-10-27 11:07 | disposition home or self-care (01) ==
LOC: D.MAMMO 08:00
DX: R92.8 Other abnormal and inconclusive findings on diagnostic imaging of breast (principal)

== ENCOUNTER → 2018-04-05 21:01 | Outpatient (CLI) | payer OTHER ==
[2016-11-07 15:38] VITALS: BMI 31.5
== END | disposition home or self-care (01) ==
LOC: D.MAMMO 14:00
DX: R92.8 Other abnormal and inconclusive findings on diagnostic imaging of breast (principal)